=== PATIENT | female | born 1980 | race Caucasian/White ===

== ENCOUNTER 2017-03-06 15:31 | Outpatient (CLI) | payer MEDICAID, OTHER ==
[~2017-03-06] VITALS: Ht 165.1 cm; Wt 97.0 kg
[2017-03-06 16:04] VITALS: BP 103/58; PULSE 68; Ht 165.1 cm; Wt 97.0 kg
[2017-03-06] MEDS ORDERED: PRENAT PO (16:05)
--- NOTE | 2017-03-06 16:39 | CONS ---
Date/Time of Note Date/Time of Note DATE: 03/06/17 TIME: 16:36 Assessment/Plan Assessment/Plan Additional Assessment/Plan 36 y/o at 23w 1d with pelvic pain, suspect musculoskeletal. No e/o ptl. -discharge home with ptl precautions -recommend maternity belt -f/u with OB Consultation Date/Type/Reason Admit Date/Time Reason for Consultation pelvic pain Hx of Present Illness 36 y/o at 23w 1d who presents with pelvic pain. Patient reports pain is constant. Described as pressure. Improved with rest. Denies LOF, VB, dysuria. +FM. Getting PNC, no complications. h/o term x1. Per HPI. Other systems negative. Past Medical History Medical History: no pertinent history Past Surgical History Past Surgical Hx: no surgical history Social History Denies habits. Smoking Status: Never smoker Exam/Review of Systems Vital Signs Vitals Vital Signs Date Time Temp Pulse Resp B/P Pulse Ox O2 Delivery O2 Flow Rate FiO2 03/06/17 16:04 98.2 68 103/58 Exam Gen: NAD HEENT: NCAT CV: RRR Pulm: CTAB Abd: gravid, NT Back: no CVAT Ext: NT FHT: + [place]: no JUHI Lipscomb March 06, 2017 16:39
== END 2017-03-06 16:43 | disposition home or self-care (01) ==
LOC: OBT 15:31 → L-D 15:32 → OBT 16:43
PROVIDERS: ATTEND Obstetrics & Gynecology
DX: O26.892 Other specified pregnancy related conditions, second trimester (principal); R10.2 Pelvic and perineal pain; O09.512 Supervision of elderly primigravida, second trimester; Z3A.23 23 weeks gestation of pregnancy
CPT/HCPCS: G0463

== ENCOUNTER 2017-05-29 11:20 | Outpatient (CLI) | payer OTHER ==
[~2017-05-29] VITALS: Ht 160 cm; Wt 104.9 kg
[~2017-05-29 11:20] MED LIST: PRENAT PO
[2017-05-29 11:54] LABS: BASOPHIL # 0.1 10^3/ul (0.0-0.1); BASOPHILS % 0.4 % (0.0-2.0); EOSINOPHILS # 0.1 10^3/ul (0.0-0.5); EOSINOPHILS % 0.8 % (0.0-7.0); HEMATOCRIT 36.9 % (37.0-47.0); HEMOGLOBIN 12.4 g/dl (12.0-16.0); LYMPHOCYTES # 3.1 10^3/ul (0.8-2.9); LYMPHOCYTES % 22.8 % (15.0-51.0); MEAN CORPUSCULAR HEMOGLOBIN 28.4 pg (29.0-33.0); MEAN CORPUSCULAR HGB CONC 33.6 g/dl (32.0-37.0); MEAN CORPUSCULAR VOLUME 84.6 fl (82.0-101.0); MEAN PLATELET VOLUME 10.6 fl (7.4-10.4); MONOCYTE # 0.9 10^3/ul (0.3-0.9); MONOCYTES % 6.4 % (0.0-11.0); NEUTROPHIL # 9.3 10^3/ul (1.6-7.5); NEUTROPHILS % 68.5 % (39.0-77.0); PLATELET COUNT 371 10^3/UL (140-415); RED BLOOD COUNT 4.36 10^6/ul (4.20-5.40); RED CELL DISTRIBUTION WIDTH 13.8 % (11.5-14.5); WHITE BLOOD COUNT 13.5 10^3/ul (4.8-10.8)
[2017-05-29 12:04] LABS: ADD UMIC YES; UR ASCORBIC ACID 20 mg/dL (NEGATIVE); UR BACTERIA FEW /HPF (NONE SEEN); UR BILIRUBIN (Dip) NEGATIVE (NEGATIVE); UR BLOOD (Dip) NEGATIVE (NEGATIVE); UR CLARITY SLIGHTLY CLOUDY (CLEAR); UR COLOR YELLOW (YELLOW); UR GLUCOSE (Dip) NEGATIVE (NEGATIVE); UR KETONES (Dip) NEGATIVE (NEGATIVE); UR LEUKOCYTE ESTERASE (Dip) 3+ Leu/ul (NEGATIVE); UR MUCUS FEW /HPF (NONE SEEN); UR NITRITE (Dip) NEGATIVE (NEGATIVE); UR RBC 1 /HPF (0-5); UR SQUAMOUS EPITHELIAL CELL FEW /HPF (FEW); UR TOTAL PROTEIN (Dip) NEGATIVE (NEGATIVE); UR UROBILINOGEN (Dip) NEGATIVE (NEGATIVE)
[2017-05-29 12:16] LABS: ALBUMIN 3.6 g/dl (3.3-4.9); ALBUMIN/GLOBULIN RATIO 0.97; BILIRUBIN,INDIRECT 0.1 mg/dl (0-1.1); BILIRUBIN,TOTAL 0.1 mg/dl (0.2-1.3); CALCIUM 9.1 mg/dl (8.4-10.2); CREATININE 0.48 mg/dl (0.44-1.00); POTASSIUM 4.1 mmol/L (3.5-5.1); TOTAL PROTEIN 7.3 g/dl (6.1-8.1); URIC ACID 3.3 mg/dl (3.1-7.9)
--- NOTE | 2017-05-29 12:45 | RADRPT ---
PROCEDURE: US OB biophysical profile. CLINICAL INDICATION: decreased movements TECHNIQUE: Multiple sonographic images of the pelvis were obtained. The images were reviewed on a PACS workstation. COMPARISON: No prior studies are available for comparison. FINDINGS: There is a single viable intrauterine gestation. Cardiac activity is present with 148 beats per min ez. There is a vertex presentation. The placenta is anterior. There is no evidence of placental abruption. There is a normal amount of amniotic fluid with an [place] = 9.7 cm. Biophysical profile: movement 2/2 tone 2/2. breathing 2/2 [place] 2/2 Total 06/02 RPTAT: AA . IMPRESSION: Normal biophysical profile. . .Gustavo Fletcher MD, MD Date Time Electronically viewed and signed by .Gustavo Fletcher MD, MD on 05/29/2017 12:44 .S/
--- NOTE | 2017-05-29 12:46 | RADRPT ---
PROCEDURE: US OB. CLINICAL INDICATION: Size and dates , DFM TECHNIQUE: Multiple sonographic images of the pelvis and gravid uterus were obtained. The images were reviewed on a PACS workstation. COMPARISON: No prior studies are available for comparison. FINDINGS: There is a single viable intrauterine gestation. Cardiac activity is present with 171 beats per min ez. There is a vertex presentation. The placenta is anterior. There is no evidence of placental abruption. There is a normal amount of amniotic fluid with an [place] = 9.7 cm. Measurements were made in order to determine age. The results are as follows: BPD =8.3 cm HC =30.9 cm AC =33.3 cm FL =6.6 cm Estimated gestational age of approximately 34 weeks and 5 days based on ultrasound measurements. Clinical age: 35 weeks and 1 day. The estimated date of delivery is 07/05/17, based on ultrasound measurements. The EFW = 2732 g, 62%, based on LMP age. RPTAT: AA IMPRESSION: Single viable intrauterine gestation of approximately 34 weeks and 5 days based on ultrasound measu rements. .Gustavo Fletcher MD, Date Time Electronically viewed and signed by .Gustavo Fletcher MD, on 05/29/2017 12:45 .S/
[2017-05-29 12:47] VITALS: BP 163/63; PULSE 73; Ht 160 cm; Wt 104.9 kg
--- NOTE | 2017-05-29 14:33 | PN ---
Triage Information Date/Time Reason for visit: DFM Weeks of Gestation 35 weeks /Para Diabetes: none Hypertention: none Objective Vital Signs Date Time Temp Pulse Resp B/P Pulse Ox O2 Delivery O2 Flow Rate FiO2 05/29/17 12:47 97.9 73 163/63 Repeat BP normal Heart Rate: 130's Heart Rate Comments Category I Contractions: None Results/Medications Result Diagram: 05/29/17 1130 05/29/17 1130 Results 24 hrs Laboratory Tests Test 05/29/17 11:30 White Blood Count 13.5 H Red Blood Count 4.36 Hemoglobin 12.4 Hematocrit 36.9 L Mean Corpuscular Volume 84.6 Mean Corpuscular Hemoglobin 28.4 L Mean Corpuscular Hemoglobin Concent 33.6 Red Cell Distribution Width 13.8 Platelet Count 371 Mean Platelet Volume 10.6 H Neutrophils % 68.5 Lymphocytes % 22.8 Monocytes % 6.4 Eosinophils % 0.8 Basophils % 0.4 Nucleated Red Blood Cells % 0.0 Neutrophils # 9.3 H Lymphocytes # 3.1 H Monocytes # 0.9 Eosinophils # 0.1 Basophils # 0.1 Nucleated Red Blood Cells # 0.0 Urine Color YELLOW Urine Clarity SLIGHTLY CLOUDY A Urine pH 7.0 Urine Specific [place] 1.010 Urine Ketones NEGATIVE Urine Nitrite NEGATIVE Urine Bilirubin NEGATIVE Urine Urobilinogen NEGATIVE Urine Leukocyte Esterase 3+ H Urine Microscopic RBC 1 Urine Microscopic WBC 4 Urine Squamous Epithelial Cells FEW Urine Bacteria FEW A Urine Mucus FEW A Urine Hemoglobin NEGATIVE Urine Glucose NEGATIVE Urine Total Protein NEGATIVE Sodium Level 140 Potassium Level 4.1 Chloride Level 105 Carbon Dioxide Level 21 Anion Gap 18 H Blood Urea Nitrogen 6 L Creatinine 0.48 Glucose Level 81 Uric Acid 3.3 Calcium Level 9.1 Total Bilirubin 0.1 L Direct Bilirubin 0.00 Indirect Bilirubin 0.1 Aspartate Amino Transf (AST/SGOT) 24 Alanine Aminotransferase (ALT/SGPT) 31 Alkaline Phosphatase 167 H Total Protein 7.3 Albumin 3.6 Globulin 3.70 H Albumin/Globulin Ratio 0.97 Imaging Results BPP 06/02 Disposition: Discharge Assessment/Plan OB ultrasound and labs normal. D/C home Follow up antepartum testing on 05/31/2017. BEBO SARMIENTO MD May 29, 2017 14:33
--- NOTE | 2017-05-29 14:49 | TRIAGE ---
OB Triage Datetime Report Generated by CPN: 05/29/2017 14:48 Datetime: 05/29/2017 14:30 Stage of : OB Triage Datetime: 05/29/2017 13:42 Labor Evaluation Frequency: 0 Monitor Mode: External Resting Tone [place]: Relaxed Heart Rate FHR Baseline Rate: 145 Monitor Mode: External US Variability: Moderate 6-25 bpm Accelerations: 10X10 Decelerations: None Category: Category I Pain Assessment Pain Scale: 0 Pain Presence: None/Denies Pain Type: N/A Pain Goal: 3 Pain Relief Measures: Comfort Measures Datetime: 05/29/2017 12:41 Stage of : OB Triage Assessment Type: Triage Maternal Assessment Level of Consciousness: Fully Conscious DTR's/Clonus: DTRs 2+; No Clonus Blurred Vision: No Respiratory Effort: Unlabored; Regular Rhythm; Equal Expansion Breath Sounds, Left: Clear and Equal Breath Sounds, Right: Clear and Equal Nausea/Vomiting: Denies RUQ Epigastric Pain: Denies Facial Edema: None Temperature Route: Axillary Fall Risk Assessment History of Falling: (0) No Secondary Diagnosis: (0) No Ambulatory Aid: (0) Bedrest/Nurse Assist IV Therapy: (0) No Gait: (0) Normal/Bedrest/Immobile Mental Status: (0) Oriented to Own Ability Fall Score: 0 Fall Risk Score Definition: No Risk: No action required Labor Evaluation Frequency: 6-7 Monitor Mode: External Duration (sec)2399: 50-60 Quality: Mild Pattern: Normal: <= 5 Contractions in 10 Minutes Resting Tone [place]: Relaxed Heart Rate FHR Baseline Rate: 145 Monitor Mode: External US Variability: Moderate 6-25 bpm Accelerations: None Decelerations: None Category: Category II Pain Assessment Pain Scale: 6 Pain Presence: Constant Pain Type: Ache Pain Location: Head Pain Goal: 3 Pain Relief Measures: Comfort Measures Datetime: 05/29/2017 12:39 Time of Arrival: 05/29/2017 11:15 EGA: 35.5 Arrived By: Ambulatory Arrived From: DrRobert Office Chief Complaint: SENT FROM OFFICE FOR DFM AND R/O PIH C/O HEADACHE Movement: Decreased Contractions: Denies/Absent Rupture of Membranes: Denies Vaginal Discharge: Denies Recent Sexual Intercouse: Denies Abdominal Trauma: Not Applicable Time Provider Notified: 05/29/2017 14:24 Provider Notified: DELSHAD Initial Plan: MONITOR, BPP/[place], CBC,CMP, U/A, EFW Datetime: 03/06/2017 16:34 Stage of : OB Triage Datetime: 03/06/2017 16:01 Stage of : OB Triage Assessment Type: Triage Maternal Assessment Level of Consciousness: Fully Conscious DTR's/Clonus: DTRs 2+; No Clonus Headache: Denies Blurred Vision: No Respiratory Effort: Unlabored; Regular Rhythm; Equal Expansion Breath Sounds, Left: Clear and Equal Breath Sounds, Right: Clear and Equal Nausea/Vomiting: Denies RUQ Epigastric Pain: Denies Facial Edema: None Temperature Route: Axillary Fall Risk Assessment History of Falling: (0) No Secondary Diagnosis: (0) No Ambulatory Aid: (0) Bedrest/Nurse Assist IV Therapy: (0) No Gait: (0) Normal/Bedrest/Immobile Mental Status: (0) Oriented to Own Ability Fall Score: 0 Fall Risk Score Definition: No Risk: No action required Labor Evaluation Frequency: 0 Monitor Mode: External Resting Tone [place]: Relaxed Heart Rate FHR Baseline Rate: 145 Monitor Mode: External US Variability: Moderate 6-25 bpm Pain Assessment Pain Scale: 4 Pain Presence: None/Denies Pain Type: Pressure Pain Location: Perineum Pain Goal: 3 Pain Relief Measures: Comfort Measures Datetime: 03/06/2017 16:00 EGA: 23.5 Datetime: 03/06/2017 15:59 Time of Arrival: 03/06/2017 15:22 Arrived By: Ambulatory Arrived From: Home Chief Complaint: C/O CONSTANT PELVIC PAIN, AND LOWER BACK PAIN. DENIES BLEEDING, LEAKING OR UC'S Movement: Present Contractions: Denies/Absent Rupture of Membranes: Denies Vaginal Bleeding: None Vaginal Discharge: Denies Recent Sexual Intercouse: Denies Abdominal Trauma: Not Applicable Patient Complaints: None Time Provider Notified: 03/06/2017 16:34 Provider Notified: ARTI Initial Plan: MONITOR
== END 2017-05-29 14:38 | disposition home or self-care (01) ==
LOC: OBT 11:20 → L-D 11:22 → OBT 14:38
PROVIDERS: ATTEND Obstetrics & Gynecology
DX: O26.893 Other specified pregnancy related conditions, third trimester (principal); R51 Headache; Z3A.35 35 weeks gestation of pregnancy
CPT/HCPCS: 76815; 76818; 80053; 81001; 84560; 85025; Z7500; G0463

== ENCOUNTER 2017-06-01 18:13 | Outpatient (CLI) | payer OTHER ==
[~2017-06-01] VITALS: Ht 160 cm; Wt 106.2 kg
[2017-06-01 18:39] VITALS: BP 124/66; PULSE 76; Ht 160 cm; Wt 106.2 kg
--- NOTE | 2017-06-01 19:31 | RADRPT ---
PROCEDURE: Obstetrical ultrasound for biophysical profile CLINICAL INDICATION: Biophysical profile. . TECHNIQUE: Obstetrical ultrasound of the uterus for biophysical profile. Transabdominal views are obtained. COMPARISON: 05/29/2017 FINDINGS: Single intrauterine gestation. Presentation: Cephalic. Placenta: Fundal No evidence of placental abruption. No evidence of placenta previa. breathing movement = 2/2 tone = 2/2 motion = 2/2 [place] = 2/2 [place] = 14.4 cm, previously 9.6 cm. heart rate: 150 beats per minute IMPRESSION: Single intrauterine gestation. Biophysical profile 06/02 RPTAT: AADD .Doyle Briceño MD, Date Time Electronically viewed and signed by .Doyle Briceño MD, on 06/01/2017 19:31 .B/
--- NOTE | 2017-06-01 21:13 | PN ---
Triage Information Date/Time Reason for visit: DFM Weeks of Gestation 36 weeks /Para Diabetes: none Hypertention: none Objective Vital Signs Date Time Temp Pulse Resp B/P Pulse Ox O2 Delivery O2 Flow Rate FiO2 06/01/17 18:39 98.6 76 124/66 Heart Rate: 120's Heart Rate Comments Category I Contractions: None Results/Medications Imaging Results BPP 06/02 [place] 14 Disposition: Discharge Assessment/Plan Antepartum Testing Reassuring. D/C home. kick count. BEBO SARMIENTO MD Jun 01, 2017 21:13
--- NOTE | 2017-06-01 21:47 | TRIAGE ---
OB Triage Datetime Report Generated by CPN: 06/01/2017 21:46 Datetime: 06/01/2017 21:10 Stage of : OB Triage Datetime: 06/01/2017 20:50 Stage of : OB Triage Monitor Mode: External Quality: Mild Pattern: Normal: <= 5 Contractions in 10 Minutes Resting Tone [place]: Relaxed Heart Rate FHR Baseline Rate: 145 Monitor Mode: External US FHR Baseline Changes: No Baseline Change Variability: Moderate 6-25 bpm Accelerations: 15X15 Decelerations: None Category: Category I Pain Assessment Pain Scale: 3 Pain Presence: Constant Pain Type: Ache Pain Location: Head Datetime: 06/01/2017 19:58 Stage of : OB Triage Monitor Mode: External Quality: Mild Pattern: Normal: <= 5 Contractions in 10 Minutes Resting Tone [place]: Relaxed Heart Rate FHR Baseline Rate: 140 Monitor Mode: External US FHR Baseline Changes: No Baseline Change Variability: Moderate 6-25 bpm Accelerations: 15X15 Decelerations: None Category: Category I Datetime: 06/01/2017 19:09 Stage of : OB Triage Maternal Assessment Level of Consciousness: Fully Conscious Headache: Denies Blurred Vision: No Nausea/Vomiting: Denies RUQ Epigastric Pain: Denies Facial Edema: None Monitor Mode: External Quality: Mild Pattern: Normal: <= 5 Contractions in 10 Minutes Resting Tone [place]: Relaxed Heart Rate FHR Baseline Rate: 145 Monitor Mode: External US FHR Baseline Changes: No Baseline Change Variability: Moderate 6-25 bpm Accelerations: 15X15 Decelerations: None Category: Category I Pain Assessment Pain Scale: 6 Pain Presence: Constant Pain Type: Ache Pain Location: Head Datetime: 06/01/2017 18:42 Stage of : OB Triage Datetime: 06/01/2017 18:36 Stage of : OB Triage Assessment Type: Triage Maternal Assessment Level of Consciousness: Fully Conscious DTR's/Clonus: DTRs 2+; No Clonus Headache: Denies Blurred Vision: No Respiratory Effort: Unlabored; Regular Rhythm; Equal Expansion Breath Sounds, Left: Clear and Equal Breath Sounds, Right: Clear and Equal Nausea/Vomiting: Denies RUQ Epigastric Pain: Denies Facial Edema: None Temperature Route: Axillary Fall Risk Assessment History of Falling: (0) No Secondary Diagnosis: (0) No Ambulatory Aid: (0) Bedrest/Nurse Assist IV Therapy: (0) No Gait: (0) Normal/Bedrest/Immobile Mental Status: (0) Oriented to Own Ability Fall Score: 0 Fall Risk Score Definition: No Risk: No action required Labor Evaluation Frequency: 0 Monitor Mode: External Pattern: Normal: <= 5 Contractions in 10 Minutes Resting Tone [place]: Relaxed Heart Rate FHR Baseline Rate: 145 Monitor Mode: External US Variability: Moderate 6-25 bpm Decelerations: None Category: Category II Pain Assessment Pain Scale: 7 Pain Presence: Constant Pain Type: Ache Pain Location: Head Pain Goal: 3 Pain Relief Measures: Comfort Measures Datetime: 06/01/2017 18:34 Time of Arrival: 06/01/2017 18:10 EGA: 36.1 Arrived By: Ambulatory Arrived From: Home Chief Complaint: FOLLOW UP PIH Movement: Decreased Contractions: Denies/Absent Rupture of Membranes: Denies Vaginal Bleeding: None Vaginal Discharge: Denies Recent Sexual Intercouse: Denies Abdominal Trauma: Not Applicable Patient Complaints: Headache Time Provider Notified: 06/01/2017 18:42 Provider Notified: DELSHAD Initial Plan: MONITOR, BPP Datetime: 05/29/2017 12:41 Fall Score: 0 Fall Risk Score Definition: No Risk: No action required Datetime: 05/29/2017 12:39 EGA: 35.5 Datetime: 03/06/2017 16:01 Fall Score: 0 Fall Risk Score Definition: No Risk: No action required Datetime: 03/06/2017 16:00 EGA: 23.5
== END 2017-06-01 21:35 | disposition home or self-care (01) ==
LOC: OBT 18:13 → L-D 18:14 → OBT 21:35
PROVIDERS: ATTEND Obstetrics & Gynecology
DX: O36.8130 Decreased fetal movements, third trimester, not applicable or unspecified (principal); Z3A.36 36 weeks gestation of pregnancy
CPT/HCPCS: 76818; Z7500; G0463

== ENCOUNTER 2017-06-24 15:59 | Inpatient (IN) | payer OTHER ==
[~2017-06-24] VITALS: Ht 167.6 cm; Wt 108.5 kg
[2017-06-24 16:35] VITALS: Ht 167.6 cm; Wt 108.5 kg
[2017-06-24 16:36] VITALS: BP 132/79; PULSE 81; RESP 18
[2017-06-24] MEDS ORDERED: MISOPROSTOL 200 MCG TAB ONE (17:57)
[2017-06-24] MEDS ORDERED: LACTATED RINGER'S 1,000 ML IV SCH (17:57)
[2017-06-24] MEDS ORDERED: CARBOPROST 250 MCG INJ IM PRN ×2 (18:00→20:00)
[2017-06-24] MEDS ORDERED: OXYTOCIN 30 UNITS/LR 500 ML IV PRN ×2 (18:00→20:00)
[2017-06-24] MEDS ORDERED: LIDOCAINE 1% (MPF) 30 ML INJ INJ PRN (18:00)
[2017-06-24] MEDS ORDERED: LACTATED RINGER'S 1,000 ML IV PRN (18:00)
[2017-06-24] MEDS ORDERED: MISOPROSTOL 200 MCG TAB PR PRN ×2 (18:00→20:00)
[2017-06-24] MEDS ORDERED: IBUPROFEN 600 MG TAB PO PRN (18:00)
[2017-06-24] MEDS ORDERED: METHYLERGONOVINE 0.2 MG INJ IM PRN ×2 (18:00→20:00)
[2017-06-24] MEDS ORDERED: OXYTOCIN 30 UNITS/LR 500 ML IV SCH ×2 (18:00)
--- NOTE | 2017-06-24 19:57 | HP ---
Date/Time of Note Date/Time of Note DATE: 06/24/17 TIME: 19:49 OB - History Hx of Present Free Text/Dictation Patient presented with complaint of uterine contractions in triage was 5 cm. The progress and had spontaneous rupture of membrane. Had urge to push. I was called due to the BOA. There was no records available at the time of admission.\Presented to the bedside vertex was at the perineum and the patient was . Was delivered. Long cord noted as well as nuchal cord 1 with a True knot. Primary attending had been notified by RN about patient 's admission. please see the delivery record Estimated Due Date: Jul 02, 2017 : 3 Para: 2 Therapeutic : 0 Care: Good Care Other Concerns: Patient had only [address] Holliday office. Claims that she had care at [facility], but no records available. Past Family/Social History * Past Medical, Surgical, Family and Obstetric Histories reviewed from chart. Blood Type: O+ Rubella: immune RPR/VDRL: Negative GBS Status: Unknown HBsAG: Negative OB Admission Exam Vital Signs Vital Signs Vital Signs Date Time Temp Pulse Resp B/P Pulse Ox O2 Delivery O2 Flow Rate FiO2 06/24/17 16:36 98.0 81 18 132/79 Room Air Physical Exam HEENT: WNL Lungs: Clear Abdomen: WNL Reflexes: Normal Cervical Dilatation: 10cm Effacement: 100% Station: +3 Membranes: Ruptured Amniotic Fluid: Clear Intensity: Firm OB Assessment/Plan Reason for admission: active labor Other Assessment: Precipitous delivery Term BOA Patient had a second degree laceration GBS was unknown and the patient did not have any chance for receiving any abx. UTOx to be ordered due to limited care. DORCAS MELENDEZ MD Jun 24, 2017 19:57
[2017-06-24] MEDS ORDERED: LACTATED RINGER'S 1,000 ML IV* SCH (19:59)
[2017-06-24] MEDS ORDERED: HYDROCODONE/APAP (5/325) TAB PO PRN (20:00)
[2017-06-24] MEDS ORDERED: LANOLIN 7 GM TUBE TOP PRN (20:00)
[2017-06-24] MEDS ORDERED: WITCH HAZEL/GLYCERIN PAD PR PRN (20:00)
[2017-06-24] MEDS ORDERED: ONDANSETRON 4 MG INJ IV PRN (20:00)
[2017-06-24] MEDS ORDERED: ZOLPIDEM 5 MG TAB PO PRN (20:00)
[2017-06-24] MEDS ORDERED: DIPHENHYDRAMINE 25 MG CAP PO PRN (20:00)
--- NOTE | 2017-06-24 20:02 | TRIAGE ---
OB Triage Datetime Report Generated by CPN: 06/24/2017 20:02 Datetime: 06/24/2017 19:57 Time of Arrival: 06/24/2017 15:53 EGA: 38.6 Arrived By: Ambulatory Arrived From: Home Chief Complaint: CONTRACTIONS Movement: Present Contractions: Denies/Absent Time Contractions Began: 06/24/2017 09:30 Rupture of Membranes: Denies Vaginal Bleeding: Normal Show Patient Complaints: Contractions Time Provider Notified: 06/24/2017 17:14 Provider Notified: DR. SARMIENTO Initial Plan: EFM x2, SVE Datetime: 06/24/2017 19:40 Stage of : Recovery Pain Assessment Pain Scale: 5 Pain Presence: Constant Pain Type: Cramping Pain Location: Abdomen Datetime: 06/24/2017 19:25 Stage of : Recovery Pain Assessment Pain Scale: 5 Pain Presence: Constant Pain Type: Cramping Pain Location: Abdomen Datetime: 06/24/2017 19:10 Stage of : Recovery Pain Assessment Pain Scale: 6 Pain Presence: Constant Pain Type: Cramping Pain Location: Abdomen Datetime: 06/24/2017 18:55 Stage of : Recovery Pain Assessment Pain Scale: 7 Pain Presence: Constant Pain Type: Cramping Pain Location: Abdomen Pain Relief Measures: Pain Medication Given Datetime: 06/24/2017 18:40 Stage of : Recovery Pain Assessment Pain Scale: 7 Pain Presence: Constant Pain Type: Cramping Pain Location: Abdomen Datetime: 06/24/2017 18:26 Stage of : Recovery Pain Assessment Pain Scale: 7 Pain Presence: Constant Pain Type: Cramping Pain Location: Abdomen Datetime: 06/24/2017 18:17 Stage of : Recovery Pain Assessment Pain Scale: 7 Pain Presence: Constant Pain Type: Cramping Pain Location: Abdomen Datetime: 06/24/2017 18:10 Stage of : Recovery Temperature Route: Oral Pain Assessment Pain Scale: 7 Pain Presence: Constant Pain Type: Cramping Pain Location: Abdomen Datetime: 06/24/2017 17:38 Assessment Type: Admission Assessment Maternal Assessment Level of Consciousness: Fully Conscious Headache: Denies Blurred Vision: No Respiratory Effort: Unlabored; Regular Rhythm; Equal Expansion Breath Sounds, Left: Clear and Equal Breath Sounds, Right: Clear and Equal Nausea/Vomiting: Denies RUQ Epigastric Pain: Denies Lower Extremities Edema: None Degree: None Upper Extremities Edema: None Degree: None Facial Edema: None Fall Risk Assessment History of Falling: (0) No Secondary Diagnosis: (0) No Ambulatory Aid: (0) Bedrest/Nurse Assist IV Therapy: (0) No Gait: (0) Normal/Bedrest/Immobile Mental Status: (0) Oriented to Own Ability Fall Score: 0 Fall Risk Score Definition: No Risk: No action required Vaginal Exam Dilatation (cms): 10.0 Effacement (%): 100 Station: 3 Exam By: CKUNIYOSHI Membrane Status: Ruptured Membranes Rupture Method: Spontaneous Amniotic Fluid Color: Clear Amniotic Fluid Amount: Moderate Amniotic Fluid Odor: None Datetime: 06/24/2017 17:37 Labor Evaluation Frequency: 2-7 Monitor Mode: External Duration (sec)2399: 60-90 Quality: Mild Pattern: Normal: <= 5 Contractions in 10 Minutes Resting Tone [place]: Relaxed Heart Rate FHR Baseline Rate: 140 Monitor Mode: External US FHR Baseline Changes: No Baseline Change Variability: Moderate 6-25 bpm Accelerations: 15X15 Decelerations: None Datetime: 06/24/2017 17:21 Vaginal Exam Dilatation (cms): 5.0 Effacement (%): 80 Station: -2 Exam By: CKUNIYOSHI Datetime: 06/24/2017 16:10 Vaginal Exam Dilatation (cms): 2.0 Effacement (%): 70 Station: -2 Exam By: T.MAO Datetime: 06/01/2017 18:36 Fall Score: 0 Fall Risk Score Definition: No Risk: No action required Datetime: 06/01/2017 18:34 Time of Arrival: 06/01/2017 17:30 EGA: 35.4 Datetime: 05/29/2017 12:41 Fall Score: 0 Fall Risk Score Definition: No Risk: No action required Datetime: 05/29/2017 12:39 EGA: 35.1 Datetime: 03/06/2017 16:01 Fall Score: 0 Fall Risk Score Definition: No Risk: No action required Datetime: 03/06/2017 16:00 EGA: 23.1 Membranes Ruptured Date/Time: 06/24/2017 17:38 Presentation 'A': Cephalic
[2017-06-24] MEDS: SENNA/DOCUSATE NA (8.6MG/50MG) TAB PO SCH (21:00)
[2017-06-24 21:02] LABS: BASOPHILS % 0.2 % (0.0-2.0); EOSINOPHILS % 0.2 % (0.0-7.0); HEMATOCRIT 37.2 % (37.0-47.0); HEMOGLOBIN 12.6 g/dl (12.0-16.0); LYMPHOCYTES # 1.8 10^3/ul (0.8-2.9); MEAN CORPUSCULAR HEMOGLOBIN 28.9 pg (29.0-33.0); MEAN CORPUSCULAR HGB CONC 33.9 g/dl (32.0-37.0); MEAN CORPUSCULAR VOLUME 85.3 fl (82.0-101.0); MONOCYTE # 0.4 10^3/ul (0.3-0.9); MONOCYTES % 2.7 % (0.0-11.0); NEUTROPHILS % 85.2 % (39.0-77.0); PLATELET COUNT 367 10^3/UL (140-415); RED BLOOD COUNT 4.36 10^6/ul (4.20-5.40); RED CELL DISTRIBUTION WIDTH 13.9 % (11.5-14.5); WHITE BLOOD COUNT 16.4 10^3/ul (4.8-10.8)
[2017-06-24 21:06] LABS: INR 0.94; PROTIME 12.6 Sec (12.2-14.2)
[2017-06-24 21:07] LABS: PARTIAL THROMBOPLASTIN TIME 26.1 Sec (25.0-35.0)
[2017-06-24 21:19] LABS: BARBITURATES Negative (NEGATIVE); BENZODIAZEPINES Negative (NEGATIVE); CANNABINOIDS Negative (NEGATIVE); COCAINE Negative (NEGATIVE); OPIATES Negative (NEGATIVE)
[2017-06-24 21:30] VITALS: BP 134/83; PULSE 96; RESP 18
[2017-06-24] MEDS: IBUPROFEN 600 MG TAB PO SCH (23:34)
[2017-06-25 04:00] VITALS: BP 107/59; PULSE 66; RESP 18
[2017-06-25] MEDS: IBUPROFEN 600 MG TAB PO SCH ×4 (05:34→23:48)
[2017-06-25 08:00] VITALS: BP 119/60; PULSE 70; RESP 18
[2017-06-25] MEDS: PRENATAL VITAMIN PO SCH (09:34)
[2017-06-25] MEDS: SENNA/DOCUSATE NA (8.6MG/50MG) TAB PO SCH ×2 (09:34→21:20)
[2017-06-25 10:47] LABS: HEMATOCRIT 31.2 % (37.0-47.0); HEMOGLOBIN 10.3 g/dl (12.0-16.0)
[2017-06-25 12:15] VITALS: BP 114/67; PULSE 70; RESP 20
[2017-06-25 16:00] VITALS: BP 113/54; PULSE 73; RESP 19
[2017-06-25 20:00] VITALS: BP 112/51; PULSE 79; RESP 18
--- NOTE | 2017-06-25 20:27 | DS ---
Date/Time of Note Date/Time of Note DATE: 06/25/17 TIME: 20:26 Obstetrical Discharge Record Final Diagnosis Final Diagnosis: Term delivered Vaginal Delivery Obstetrical Delivery: Spontaneous Condition on Discharge Physical Assessment Voiding: Yes Bowel Movement: Yes Breast: Soft, non-tender Fundus: Firm Calf Tenderness: No Patient Condition: Stable BEBO SARMIENTO MD Jun 25, 2017 20:27
[2017-06-26 04:00] VITALS: BP 97/52; PULSE 68; RESP 18
[2017-06-26] MEDS: IBUPROFEN 600 MG TAB PO SCH ×2 (05:40→11:37)
[2017-06-26 07:40] VITALS: BP 116/61; PULSE 62; RESP 16
[2017-06-26] MEDS: PRENATAL VITAMIN PO SCH (08:35)
[2017-06-26] MEDS: SENNA/DOCUSATE NA (8.6MG/50MG) TAB PO SCH (08:35)
[2017-06-26] MEDS ORDERED: DIPHTH/TET/ACEL PERTUSS (ADULT) 0.5 ML VIAL IM* ONE (09:00)
--- NOTE | 2017-06-26 14:08 | LDN ---
Date/Time of Note Date/Time of Note DATE: 06/26/17 TIME: 14:04 Delivery Summary Weeks of Gestation 38 weks and 6 days Placenta Delivered: Spontaneously Meconium: none Episiotomy: No Perineal laceration: 1 Laceration repair: Second degree laceration repaired Anesthesia type: Local Estimated blood loss: 300 Sponge & Needle done & correct: Yes All needle counts correct: Yes Any foreign bodies felt in the: No Problems: Infant Delivery Information Sex Infant Sex: female Apgars 1 Minute: 9 5 Minute: 9 Suctioning Nose & mouth suctioned at [place]: Yes Delee suction performed: No Umbilical Cord Umbilical cord with: 3 Vessels Cord presentations: nuchal cord Nuchal cord present X: 2 Cord Blood was obtained: Yes Mother & Baby Disposition Disposition Mom & Baby to Maternity; Good: Yes BEBO SARMIENTO MD Jun 26, 2017 14:08
== END 2017-06-26 15:49 | disposition home or self-care (01) | DRG 775 ==
LOC: OBT 15:59 → L-D 16:01 → OBT 17:24 → PP1 21:37
PROVIDERS: ADMIT Obstetrics & Gynecology; ATTEND Obstetrics & Gynecology
PROC: 10E0XZZ Delivery of Products of Conception, External Approach (ICD-10-PCS; principal; 2017-06-24)
PROC: 0KQM0ZZ Repair Perineum Muscle, Open Approach (ICD-10-PCS; 2017-06-24)
DX: O62.3 Precipitate labor (principal); O69.2XX0 Labor and delivery complicated by other cord entanglement, with compression, not applicable or unspecified; O70.1 Second degree perineal laceration during delivery; O69.89X0 Labor and delivery complicated by other cord complications, not applicable or unspecified; Z3A.38 38 weeks gestation of pregnancy; Z37.0 Single live birth
CPT/HCPCS: 80307; 85014; 85018; 85025; 85610; 85730; 86592; 86900; 86901; 87340; 90715; G0463; J2590; J7120